=== PATIENT | male | born 1985 | race African-American/Black ===

== ENCOUNTER 2024-06-16 09:11 | Emergency (ER) | payer MEDICAID ==
[~2024-06-16] VITALS: Ht 160 cm; Wt 68.0 kg
[2024-06-16 09:17] VITALS: BP 113/61; PULSE 89; RESP 16; TEMP 99; O2SAT 97
[2024-06-16] MEDS: TETRACAINE 0.5% OPHTH DROPS 4ML RIGHTEYE ONE (10:08)
[2024-06-16] MEDS: LIDOCAINE HCL 1% 20ML VIAL INFIL ONE (10:24)
[2024-06-16] MEDS: IBUPROFEN 600MG TABLET PO ONE (10:30)
[2024-06-16] MEDS: SULFAMETHOXAZOLE/TRIMETHOPRIM 800/160MG TABLET PO ONE (10:30)
[2024-06-16] MEDS ORDERED: SULF1TAB48 MT (12:16)
[2024-06-16] MEDS ORDERED: IBUP-2029 PO (12:16)
== END 2024-06-16 12:24 | disposition home or self-care (01) ==
LOC: ER 09:11
DX: H00.031 Abscess of right upper eyelid (principal)
CPT/HCPCS: 10060; 99283; J3490; Z7610 ×2